=== PATIENT | female | born 1930 | race Caucasian/White ===

== ENCOUNTER 2018-12-31 17:56 | Emergency (ER) | payer MEDICARE ==
[2018-12-31] MEDS ORDERED: GUAIFENESIN-DM 200/20 MG 10 ML ONE (18:32)
[2018-12-31 18:51] LABS: BASOPHILS % (AUTO) 0.7 % (0.0-5.0); HEMATOCRIT 34.5 % (36-48); LYMPHOCYTES % (AUTO) 26.4 % (21.0-51.0); MEAN CORPUSCULAR HEMOGLOBIN 30.7 pg (27.0-33.0); MEAN CORPUSCULAR HGB CONC 33.9 g/dL (32.0-36.0); MEAN CORPUSCULAR VOLUME 90.5 fL (79-99); MONOCYTES % (AUTO) 7.5 % (3.0-13.0); NEUTROPHILS % (AUTO) 63.4 % (40.0-77.0); NUCLEATED RED BLOOD CELLS 0.2 % (0.0-0.19); PLATELET COUNT (AUTO) 207 K/uL (130-400); RED BLOOD CELL COUNT(AUTO) 3.81 MIL/uL (4.00-5.50); RED CELL DISTRIBUTION WIDTH 13.5 % (11.0-15.5); WHITE BLOOD COUNT (AUTO) 5.7 K/uL (4.8-10.8)
[2018-12-31 19:09] LABS: CREATININE 0.8 mg/dL (0.5-1.5)
[2018-12-31 19:20] LABS: ALBUMIN 3.7 g/dL (3.5-5.0); BILIRUBIN,TOTAL 0.2 mg/dL (0.2-1.0)
[2018-12-31 19:33] LABS: INR 0.96 (0.85-1.15); PARTIAL THROMBOPLASTIN TIME 30.5 SEC (26.3-35.5); PROTHROMBIN TIME 10.1 SEC (9.6-11.6)
[2018-12-31 19:42] LABS: B-TYPE NATRIURETIC PEPTIDE 59 pg/mL (0-100)
== END 2018-12-31 20:00 | disposition home or self-care (01) ==
LOC: EDH 17:56
DX: J06.9 Acute upper respiratory infection, unspecified (principal); R06.00 Dyspnea, unspecified; R05 Cough; I10 Essential (primary) hypertension; Z88.0 Allergy status to penicillin
CPT/HCPCS: 36415; 71045; 80053; 82550; 83874; 83880; 84484; 85025; 85610; 85730; 93005

== ENCOUNTER 2019-01-07 17:15 | Emergency (ER) | payer MEDICARE ==
[2019-01-07] MEDS ORDERED: LIDOCAINE 2%-EPI 1:200,000 20 ML VIAL IJ ONE (17:28)
== END 2019-01-07 17:53 | disposition home or self-care (01) ==
LOC: EDH 17:15
DX: L02.212 Cutaneous abscess of back [any part, except buttock and flank] (principal); L03.312 Cellulitis of back [any part except buttock and flank]; I10 Essential (primary) hypertension; Z88.0 Allergy status to penicillin
CPT/HCPCS: 10060; 87070; 87076; 87077; 87186; 99284; J3490

== ENCOUNTER 2019-01-17 18:30 | Emergency (ER) | payer MEDICARE ==
[2019-01-17 18:53] LABS: BASOPHILS % (AUTO) 0.7 % (0.0-5.0); EOSINOPHILS % (AUTO) 1.4 % (0.0-8.0); HEMATOCRIT 35.1 % (36-48); LYMPHOCYTES % (AUTO) 19.1 % (21.0-51.0); MEAN CORPUSCULAR HEMOGLOBIN 30.4 pg (27.0-33.0); MEAN CORPUSCULAR HGB CONC 34.1 g/dL (32.0-36.0); MONOCYTES % (AUTO) 9.1 % (3.0-13.0); NEUTROPHILS % (AUTO) 69.7 % (40.0-77.0); PLATELET COUNT (AUTO) 245 K/uL (130-400); RED BLOOD CELL COUNT(AUTO) 3.94 MIL/uL (4.00-5.50); RED CELL DISTRIBUTION WIDTH 13.8 % (11.0-15.5); WHITE BLOOD COUNT (AUTO) 7.4 K/uL (4.8-10.8)
[2019-01-17 19:04] LABS: CREATININE 0.7 mg/dL (0.5-1.5)
[2019-01-17 19:09] LABS: ALBUMIN 3.8 g/dL (3.5-5.0); BILIRUBIN,TOTAL 0.4 mg/dL (0.2-1.0)
[2019-01-17 19:17] LABS: B-TYPE NATRIURETIC PEPTIDE 83 pg/mL (0-100)
[2019-01-17] MEDS ORDERED: GUAIFENESIN SUGAR-FREE 100 MG/5 ML UDCUP ONE (19:27)
[2019-01-17] MEDS ORDERED: DIPHENHYDRAMINE HCL 25 MG CAPSULE ONE (19:27)
== END 2019-01-17 20:35 | disposition home or self-care (01) ==
LOC: EDH 18:30
DX: J30.9 Allergic rhinitis, unspecified (principal); R06.02 Shortness of breath; I10 Essential (primary) hypertension; Z88.0 Allergy status to penicillin
CPT/HCPCS: 36415; 71045; 80053; 82550; 83880; 84484; 85025; 87804 ×2; 93005; 99285; Q0163